=== PATIENT | male | born 1980 | race Caucasian/White ===

== ENCOUNTER → 2018-02-03 | Outpatient (CLI) | payer OTHER ==
--- NOTE | 2018-02-03 17:06 | RADIOLOGY REPORT (SQ) ---
EXAM DESCRIPTION: U/S EXTREMITY NONVASCULAR LTD COMPLETED DATE/TIME: 02/03/2018 4:14 pm REASON FOR STUDY: LOCALIZED SWEELIN, MASS AND LUMP, TRUNK R22.2 LOCALIZED SWELLING, MASS AND LUMP, TRUNK COMPARISON: None. TECHNIQUE: Static and real time hobson scale ultrasound Doppler spectral analysis, and color Doppler a cquired in the left axilla. Comparison right axilla images were obtained. LIMITATIONS: None. FINDINGS: Ultrasound of the left axilla was performed. In the area of tenderness, a 2 x 1 cm lymph node is present with preserved central hilar fat and grossly normal cortical thickness. Ultrasound of the right axilla was performed for comparison. In the right axilla, a 2 x 1 cm lymph n ode is present with central hilar fat and grossly normal cortical thickness. IMPRESSION: Small benign-appearing bilateral axillary lymph nodes TECHNICAL DOCUMENTATION: JOB ID: [id number] [employer]- All Rights Reserved Reading location - IP/workstation name: [email or web address]
== END ==
LOC: WI 14:43
PROVIDERS: ATTEND Surgery
DX: R22.2 Localized swelling, mass and lump, trunk (principal)
CPT/HCPCS: 76882

== ENCOUNTER → 2018-08-08 | Outpatient (CLI) | payer OTHER ==
--- NOTE | 2018-08-08 12:46 | RADIOLOGY REPORT (SQ) ---
EXAM DESCRIPTION: U/S EXTREMITY NONVASCULAR LTD COMPLETED DATE/TIME: 08/08/2018 11:03 am REASON FOR STUDY: LOCALIZED SWELLING MASS AND LUMP OF TRUNK (R22.2) R22.2 LOCALIZED SWELLING, MASS AND LUMP, TRUNK COMPARISON: 02/03/2018. TECHNIQUE: Dynamic and static grayscale images acquired of the localized site of clinical concern an d recorded on PACS. Additional selected color Doppler and spectral images recorded. SITE OF CONCERN: Left axilla. LIMITATIONS: None. FINDINGS: Left axillary lymph node measuring 1.3 x 2.3 x 3 cm. Smooth contour with normal fatty hil um. No abnormal cortical thickening or irregularity. IMPRESSION: BENIGN-APPEARING LEFT AXILLARY LYMPH NODE. TECHNICAL DOCUMENTATION: JOB ID: [id number] [employer]- All Rights Reserved Reading location - IP/workstation name: [email or web address]
== END ==
LOC: RAD 10:35
PROVIDERS: ATTEND Surgery
DX: R22.2 Localized swelling, mass and lump, trunk (principal)
CPT/HCPCS: 76882

== ENCOUNTER → 2019-08-24 | Outpatient (CLI) | payer OTHER ==
--- NOTE | 2019-08-25 08:26 | WOMENS IMAGING REPORT ---
EXAM DESCRIPTION: U/S BREAST UNILAT LIMITED COMPLETED DATE/TIME: 08/24/2019 9:43 am REASON FOR STUDY: R22.2 LOC SWELLING, MASS AND LUMP,TRUNK-LEFT; R22.2 LOC SWELLING, MASS AND LUMP,TR UNK-RIGHT R22.2 LOCALIZED SWELLING, MASS AND LUMP, TRUNK COMPARISON: Ultrasound left axilla 08/08/2018 Ultrasound left axilla 02/03/2018 TECHNIQUE: Real-time and static grayscale imaging performed of the right and left axilla targeted to the area of clinical concern. Selected color Doppler images recorded. LIMITATIONS: None. FINDINGS: MASS: In the deep right axilla, a 3 x 1 cm lymph node is present without worrisome feature s. No abnormal cortical thickness. Preserved central hilar fat. This is similar compared to 02/04/20 18. In the left axilla, a 2.2 x 1.3 cm lymph node is present without worrisome features. Normal cortical thickness. Preserved central hilar fat. This is similar compared to 08/08/2018 and 02/03/2018. OTHER: No other significant finding. IMPRESSION: Benign-appearing bilateral axillary lymph nodes, similar compared to previous exams BIRAD: 2 Benign findings. RECOMMENDATION: RECOMMENDED FOLLOW-UP: Follow-up as clinically indicated. COMMENT: The [employer] (ACR) has developed recommendations for screening MRI of the breasts in certain patient populations, to be used in conjunction with mammography. Breast MRI s urveillance may be appropriate for women with more than 20% lifetime risk of developing breast cancer as determined by genetic testing, significant family history of the disease, or history of mantle r adiation for Hodgkins Disease. ACR Practice Guidelines 2008. TECHNICAL DOCUMENTATION: JOB ID: [id number] [employer]- All Rights Reserved Reading location - IP/workstation name: [email or web address]
--- NOTE | 2019-08-25 08:26 | WOMENS IMAGING REPORT ---
EXAM DESCRIPTION: U/S BREAST UNILAT LIMITED COMPLETED DATE/TIME: 08/24/2019 9:43 am REASON FOR STUDY: R22.2 LOC SWELLING, MASS AND LUMP,TRUNK-LEFT; R22.2 LOC SWELLING, MASS AND LUMP,TR UNK-RIGHT R22.2 LOCALIZED SWELLING, MASS AND LUMP, TRUNK COMPARISON: Ultrasound left axilla 08/08/2018 Ultrasound left axilla 02/03/2018 TECHNIQUE: Real-time and static grayscale imaging performed of the right and left axilla targeted to the area of clinical concern. Selected color Doppler images recorded. LIMITATIONS: None. FINDINGS: MASS: In the deep right axilla, a 3 x 1 cm lymph node is present without worrisome feature s. No abnormal cortical thickness. Preserved central hilar fat. This is similar compared to 02/04/20 18. In the left axilla, a 2.2 x 1.3 cm lymph node is present without worrisome features. Normal cortical thickness. Preserved central hilar fat. This is similar compared to 08/08/2018 and 02/03/2018. OTHER: No other significant finding. IMPRESSION: Benign-appearing bilateral axillary lymph nodes, similar compared to previous exams BIRAD: 2 Benign findings. RECOMMENDATION: RECOMMENDED FOLLOW-UP: Follow-up as clinically indicated. COMMENT: The [employer] ([employer]CR) has developed recommendations for screening MRI of the breasts in certain patient populations, to be used in conjunction with mammography. Breast MRI s urveillance may be appropriate for women with more than 20% lifetime risk of developing breast cancer as determined by genetic testing, significant family history of the disease, or history of mantle r adiation for Hodgkins Disease. ACR Practice Guidelines 2008. TECHNICAL DOCUMENTATION: JOB ID: [id number] [employer]- All Rights Reserved Reading location - IP/workstation name: [email or web address]
== END ==
LOC: WI 08:29
PROVIDERS: ATTEND Surgery
DX: R22.2 Localized swelling, mass and lump, trunk (principal)
CPT/HCPCS: 76642